=== PATIENT | male | born 1980 | race Caucasian/White ===

== ENCOUNTER 2021-08-07 16:56 | Emergency (ER) | payer MEDICAID ==
[~2021-08-07] VITALS: Ht 182.9 cm; Wt 63.0 kg
[2021-08-07 17:26] VITALS: BP 105/73
--- NOTE | 2021-08-07 17:51 | NUR ---
PT REFUSES TO HAVE BLOOD DRAWN, PROVIDER NOTIFIED, SPOKE WITH PT.
== END 2021-08-07 19:36 | disposition home or self-care (01) ==
LOC: ER 16:56
DX: R55 Syncope and collapse (principal); F41.9 Anxiety disorder, unspecified
CPT/HCPCS: 71045; 93005; 99283; 99284